=== PATIENT | female | born 2000 | race Two or more races ===

== ENCOUNTER 2024-07-06 23:35 | Emergency (ER) | payer MEDICAID, OTHER ==
[~2024-07-06] VITALS: Ht 177.8 cm; Wt 105.9 kg
[2024-07-06 23:48] VITALS: BP 144/84; PULSE 94; RESP 16; O2SAT 98
[2024-07-07] MEDS ORDERED: AMOX875T4 PO (01:14)
[2024-07-07] MEDS ORDERED: ACET500T58 PO (01:14)
== END 2024-07-07 01:43 | disposition home or self-care (01) ==
LOC: ER 23:35
DX: S61.307A Unspecified open wound of left little finger with damage to nail, initial encounter (principal); E11.9 Type 2 diabetes mellitus without complications; W22.8XXA Striking against or struck by other objects, initial encounter; Y93.89 Activity, other specified; Y92.89 Other specified places as the place of occurrence of the external cause; Y99.8 Other external cause status